=== PATIENT | male | born 1995 | race Caucasian/White ===

== ENCOUNTER 2017-03-04 15:16 | Emergency (ER) | payer MEDICAID ==
[2017-03-04 15:31] VITALS: TEMP 97.8
[2017-03-04] MEDS ORDERED: KETOROLAC 30 MG/ML 1 ML VIAL IVP STA (15:54)
--- NOTE | 2017-03-04 15:58 | ED ---
General Adult HPI - General Chief complaint: Recheck/Abnormal Lab/Rx Stated complaint: Jaw dislocation Time Seen by Provider: 03/04/17 15:37 Source: patient, RN notes reviewed Mode of arrival: ambulatory Limitations: no limitations - History of Present Illness Initial comments: Patient is a 21-year-old male with significant past medical history for TMJ, who presents emergency room today with a chief complaint of dislocation of the jaw. He does not that he's had this multiple times in the past. He does admit that he yawned earlier today and it popped out of place persist or try to pop it back in foot felt increased pain on the opposite side. Patient denies any other complaints or associated symptoms. Patient denies any recent fever, chills , shortness of breath, chest pain, back pain, abdominal pain, nausea or vomiting , numbness or tingling, dysuria or hematuria, constipation or diarrhea, headaches or visual changes, or any other complaints. - Related Data Home Medications Medication Instructions Recorded Confirmed Abilify(Unknown Dose) 1 tab PO HS 03/04/17 03/04/17 Cymbalta(Unknown Dose) 1 cap PO DAILY 03/04/17 03/04/17 busPIRone HCL 15 mg PO TID 03/04/17 03/04/17 Allergies Allergy/AdvReac Type Severity Reaction Status Date / Time No Known Allergies Allergy Verified 03/04/17 16:25 Review of Systems ROS Statement: Those systems with pertinent positive or pertinent negative responses have been documented in the HPI. ROS Other: All systems not noted in ROS Statement are negative. Past Medical History Additional Past Medical History / Comment(s): TMJ problems History of Any Multi-Drug Resistant Organisms: None Reported Past Surgical History: No Surgical Hx Reported Past Psychological History: Depression Smoking Status: Current every day smoker Past Alcohol Use History: Occasional Past Drug Use History: Marijuana General Exam - General Exam Comments Initial Comments: General: The patient is awake and alert, in no distress, and does not appear acutely ill. Eye: Pupils are equal, round and reactive to light, extra-ocular movements are intact. No nystagmus. There is normal conjunctiva bilaterally. No signs of icterus. Ears, nose, mouth and throat: There are moist mucous membranes and no oral lesions. Tender palpation over the right TMJ area. Does have deviation to the left. Neck: The neck is supple, there is no tenderness or JVD. Cardiovascular: There is a regular rate and rhythm. No murmur, rub or gallop is appreciated. Respiratory: Lungs are clear to auscultation, respirations are non-labored, breath sounds are equal. No wheezes, stridor, rales, or rhonchi. Musculoskeletal: Normal ROM, no tenderness. Strength 5/5. Sensation intact. Pulses equal bilaterally 2+. Neurological: A&O x 3. CN II-XII intact, There are no obvious motor or sensory deficits. Coordination appears grossly intact. Speech is normal. Skin: Skin is warm and dry and no rashes or lesions are noted. Psychiatric: Cooperative, appropriate mood & affect, normal judgment. Limitations: no limitations Course Vital Signs 03/04/17 15:28 Temperature 97.8 F Pulse Rate 85 Respiratory 17 Rate Blood Pressure 117/66 O2 Sat by Pulse 100 Oximetry Medical Decision Making - Medical Decision Making Patient's x-rays have been reviewed and shows a dysfunction of the TMJ on the right. No obvious dislocation. Patient does admit that he got up and went to the bathroom and was able to relocate his jaw. He states that in the past she' s had just partial dislocation. He states that her only able to see a CAT scan. At this time he states it is completely back to normal. He'll be discharged home. Disposition Clinical Impression: TMJ (temporomandibular joint disorder) Disposition: HOME SELF-CARE Condition: Good Instructions: Temporomandibular Disorder (ED) Additional Instructions: Please return to emergency room if the symptoms increase or worsen or for any other concerns. Referrals: None,Stated [Primary Care Provider] - 1-2 days Time of Disposition: 18:33
--- NOTE | 2017-03-04 17:07 | XR ---
EXAMINATION TYPE: XR panorex DATE OF EXAM: 03/04/2017 COMPARISON: NONE HISTORY: Pain TECHNIQUE: Panorex view of the mandible is submitted. FINDINGS: There is no evidence of fracture or bony lesion. TMJs appear to be grossly intact. IMPRESSION: No distinct abnormality.
--- NOTE | 2017-03-04 18:21 | XR ---
EXAMINATION TYPE: XR mandible limited <4V DATE OF EXAM: 03/04/2017 COMPARISON: NONE HISTORY: Pain TECHNIQUE: Open and closed mouth views of the right TMJ are submitted. FINDINGS: There is abnormal translation of the mandibular condyle over the articular eminence suggest ing temporomandibular joint dysfunction. No fracture is identified. No evidence for bony lesion. IMPRESSION: Findings suggest right-sided temporomandibular joint dysfunction.
[2017-03-04 18:37] VITALS: BP 111/72; PULSE 90; RESP 16
== END 2017-03-04 18:37 | disposition home or self-care (01) ==
LOC: EC 15:16
DX: M26.601 Right temporomandibular joint disorder, unspecified (principal); F32.9 Major depressive disorder, single episode, unspecified; F17.200 Nicotine dependence, unspecified, uncomplicated; Z79.899 Other long term (current) drug therapy
CPT/HCPCS: 99283; 96374; 70355; 70100; J1885